=== PATIENT | female | born 1965 | race Asian ===

== ENCOUNTER → 2016-09-05 | Outpatient (CLI) | payer MEDICARE, MEDICAID ==
[~2016-09-05] MED LIST: ADV250 IH; ALEN70TA48 PO; ATOR40TA28 PO; AUD NEB; BENZ-26 PO; IPRA4AER IH; METHI5 PO; MONT10TA21 PO; PANT40TA25 PO; PROMVCC5L PO; TIOT185 IH; VITAD1000 PO
== END | disposition home or self-care (01) ==
LOC: RADPV 12:18
PROVIDERS: ATTEND Internal Medicine Critical Care Medicine
DX: J90 Pleural effusion, not elsewhere classified (principal); J98.4 Other disorders of lung; M47.894 Other spondylosis, thoracic region; Z98.890 Other specified postprocedural states
CPT/HCPCS: 71020

== ENCOUNTER → 2019-01-29 | Outpatient (CLI) | payer MEDICARE, MEDICAID ==
[~2019-01-29] VITALS: Ht 160 cm; Wt 67.0 kg
[~2019-01-29] MED LIST changes: -ADV250 IH; +ADV500 IH; +ALEN70TA10 PO; -ALEN70TA48 PO; -BENZ-26 PO; +BENZ-51 PO; +CHOL100018 PO; -TIOT185 IH; -VITAD1000 PO
[2019-01-29 10:17] VITALS: BP 126/97
== END | disposition home or self-care (01) ==
LOC: SRCNTR 10:16
PROVIDERS: ATTEND Internal Medicine Critical Care Medicine
DX: J06.9 Acute upper respiratory infection, unspecified (principal); J44.1 Chronic obstructive pulmonary disease with (acute) exacerbation; E05.90 Thyrotoxicosis, unspecified without thyrotoxic crisis or storm; Z90.2 Acquired absence of lung [part of]; Z79.899 Other long term (current) drug therapy; Z90.89 Acquired absence of other organs
CPT/HCPCS: G0463

== ENCOUNTER → 2020-02-04 | Outpatient (CLI) | payer MEDICARE, MEDICAID ==
[~2020-02-04] VITALS: Ht 160 cm; Wt 69.5 kg
[~2020-02-04] MED LIST changes: -ALEN70TA10 PO; +ALEN70TA65 PO; +METH-386 PO; -METHI5 PO; +MONT-35 PO; -MONT10TA21 PO; +PANT-31 PO; -PANT40TA25 PO
[2020-02-04 11:11] VITALS: BP 130/76
== END | disposition home or self-care (01) ==
LOC: SRCNTR 10:58
PROVIDERS: ATTEND Internal Medicine Critical Care Medicine
DX: J44.1 Chronic obstructive pulmonary disease with (acute) exacerbation (principal); J06.9 Acute upper respiratory infection, unspecified; E05.90 Thyrotoxicosis, unspecified without thyrotoxic crisis or storm; Z90.2 Acquired absence of lung [part of]; Z79.899 Other long term (current) drug therapy; Z87.891 Personal history of nicotine dependence; Z98.890 Other specified postprocedural states
CPT/HCPCS: G0463

== ENCOUNTER → 2020-03-10 | Outpatient (CLI) | payer MEDICARE, MEDICAID ==
[~2020-03-10] VITALS: Ht 160 cm; Wt 73.0 kg
[2020-03-10 15:11] VITALS: BP 127/89
== END | disposition home or self-care (01) ==
LOC: SRCNTR 11:25
PROVIDERS: ATTEND Internal Medicine Critical Care Medicine
DX: J44.1 Chronic obstructive pulmonary disease with (acute) exacerbation (principal); E05.90 Thyrotoxicosis, unspecified without thyrotoxic crisis or storm; J06.9 Acute upper respiratory infection, unspecified; Z90.2 Acquired absence of lung [part of]
CPT/HCPCS: Q3014

== ENCOUNTER → 2020-04-08 | Outpatient (CLI) | payer MEDICARE, MEDICAID ==
[~2020-04-08] VITALS: Ht 160 cm; Wt 68.5 kg
[2020-04-08 12:09] VITALS: BP 146/99
== END | disposition home or self-care (01) ==
LOC: SRCNTR 11:08
PROVIDERS: ATTEND Internal Medicine Critical Care Medicine
DX: J44.1 Chronic obstructive pulmonary disease with (acute) exacerbation (principal); E05.80 Other thyrotoxicosis without thyrotoxic crisis or storm; J06.9 Acute upper respiratory infection, unspecified; Z90.2 Acquired absence of lung [part of]
CPT/HCPCS: G0463

== ENCOUNTER → 2020-09-14 | Outpatient (CLI) | payer MEDICARE, MEDICAID ==
[~2020-09-14] VITALS: Ht 160 cm; Wt 66.8 kg
[~2020-09-14] MED LIST changes: -BENZ-51 PO; +BENZ-70 PO
[2020-09-14 11:56] VITALS: BP 134/79
== END | disposition home or self-care (01) ==
LOC: SRCNTR 11:20
PROVIDERS: ATTEND Internal Medicine Critical Care Medicine
DX: E78.5 Hyperlipidemia, unspecified (principal); J42 Unspecified chronic bronchitis; E05.90 Thyrotoxicosis, unspecified without thyrotoxic crisis or storm; J06.9 Acute upper respiratory infection, unspecified
CPT/HCPCS: G0463; Z7500

== ENCOUNTER → 2021-02-05 | Outpatient (CLI) | payer MEDICARE, MEDICAID | END | disposition home or self-care (01) | LOC: RADMN 12:39 | PROVIDERS: ATTEND Internal Medicine Critical Care Medicine | DX: J92.9 Pleural plaque without asbestos (principal); J98.4 Other disorders of lung; J44.9 Chronic obstructive pulmonary disease, unspecified | CPT/HCPCS: 71046 ==

== ENCOUNTER → 2021-02-05 | Outpatient (CLI) | payer MEDICARE, MEDICAID ==
[~2021-02-05] MED LIST changes: +INFLUENZA VIRUS VACCINE QVS 2021-22 (6MO+)/PF 60 MCG/0.5 ML SYRINGE IM. ONE
[2021-02-05 12:05] VITALS: BP 148/69
== END | disposition home or self-care (01) ==
LOC: SRCNTR 11:53
PROVIDERS: ATTEND Internal Medicine Critical Care Medicine
DX: Z23 Encounter for immunization (principal); J44.9 Chronic obstructive pulmonary disease, unspecified; E78.5 Hyperlipidemia, unspecified
CPT/HCPCS: 90471; 90686; G0463

== ENCOUNTER → 2021-06-09 | Outpatient (CLI) | payer MEDICARE, MEDICAID ==
[~2021-06-09] VITALS: Ht 160 cm; Wt 66.0 kg
[~2021-06-09] MED LIST changes: -INFLUENZA VIRUS VACCINE QVS 2021-22 (6MO+)/PF 60 MCG/0.5 ML SYRINGE IM. ONE
[2021-06-09 14:15] VITALS: BP 130/82
== END | disposition home or self-care (01) ==
LOC: SRCNTR 14:05
PROVIDERS: ATTEND Internal Medicine Critical Care Medicine
DX: J44.1 Chronic obstructive pulmonary disease with (acute) exacerbation (principal); E78.5 Hyperlipidemia, unspecified; J06.9 Acute upper respiratory infection, unspecified; E05.90 Thyrotoxicosis, unspecified without thyrotoxic crisis or storm; E89.0 Postprocedural hypothyroidism; Z90.2 Acquired absence of lung [part of]
CPT/HCPCS: G0463

== ENCOUNTER → 2023-07-13 | Outpatient (CLI) | payer MEDICARE, MEDICAID ==
[~2023-07-13] VITALS: Ht 160 cm; Wt 66.0 kg
[~2023-07-13] MED LIST changes: +ALBU2.5V39 NEB; -AUD NEB; +BENZ-227 PO; -BENZ-70 PO
[2023-07-13 13:12] VITALS: BP 133/96; PULSE 79; RESP 20; TEMP 97.8; O2SAT 96
== END | disposition home or self-care (01) ==
LOC: SRCNTR 11:13
PROVIDERS: ATTEND Internal Medicine Pulmonary Disease
DX: J45.21 Mild intermittent asthma with (acute) exacerbation (principal); E78.5 Hyperlipidemia, unspecified; E03.9 Hypothyroidism, unspecified; Z79.899 Other long term (current) drug therapy
CPT/HCPCS: G0463

== ENCOUNTER → 2023-09-12 | Outpatient (CLI) | payer MEDICARE, MEDICAID ==
[~2023-09-12] VITALS: Ht 160 cm; Wt 67.0 kg
[2023-09-12 12:18] VITALS: BP 143/87; PULSE 68; RESP 17; TEMP 98.4; O2SAT 94
== END | disposition home or self-care (01) ==
LOC: SRCNTR 11:23
PROVIDERS: ATTEND Internal Medicine Pulmonary Disease
DX: J45.901 Unspecified asthma with (acute) exacerbation (principal); E03.9 Hypothyroidism, unspecified; E78.5 Hyperlipidemia, unspecified
CPT/HCPCS: G0463